=== PATIENT | female | born 1995 | race Caucasian/White ===

== ENCOUNTER 2023-10-20 16:23 | Emergency (ER) | payer SELFPAY ==
[~2023-10-20] VITALS: Ht 172.7 cm; Wt 63.5 kg
[2023-10-20 16:48] VITALS: BP_SYST 118; PULSE 81; RESP 16; TEMP 97.2; O2SAT 96
[2023-10-20] MEDS: MORPHINE 4 MG INJ. 4 MG/ML VIAL IVP ONE (17:11)
[2023-10-20 19:15] VITALS: BP_SYST 118; PULSE 81; RESP 16; TEMP 97.2; O2SAT 96
== END 2023-10-20 18:44 | disposition home or self-care (01) ==
LOC: SED 16:23
DX: S43.014A Anterior dislocation of right humerus, initial encounter (principal); W22.8XXA Striking against or struck by other objects, initial encounter; Y93.89 Activity, other specified; Y92.89 Other specified places as the place of occurrence of the external cause; Y99.8 Other external cause status
CPT/HCPCS: 99284; 23650; 96374; 73030; J2270